=== PATIENT | male | born 1945 | race Caucasian/White ===

== ENCOUNTER 2018-10-07 09:26 | Emergency (ER) | payer OTHER ==
[~2018-10-07] VITALS: Ht 172.7 cm; Wt 63.0 kg
[2018-10-07 09:29] VITALS: Ht 172.7 cm; Wt 63.0 kg
[2018-10-07] MEDS ORDERED: HYDR-3980 PO (11:04)
[2018-10-07] MEDS ORDERED: LEVO750T25 PO (11:04)
--- NOTE | 2018-10-07 11:07 | ERD ---
ER Documentation Chief Complaint Chief Complaint Complains of right foot infection and pain x 1 week Hx of Diabetes HPI This is a 73-year-old male who was sent by his primary care doctor because he has a small callus on the plantar surface of his right foot that hurts but there is no erythema or signs of infection ROS All systems reviewed and are negative except as per history of present illness. Medications Home Meds Active Scripts Hydrocodone/Acetaminophen ([place] 10-325 Tablet) 1 Each Tablet, 1 TAB PO Q6H PRN for PAIN, #7 TAB Prov:LECARMELITAOSTHANHSTBERNADETTES A. DO 10/07/18 Levofloxacin* (Levaquin*) 750 Mg Tablet, 750 MG PO DAILY for 10 Days, TAB Prov:LEKKOS,APOSTOLOS A. DO 10/07/18 Allergies Allergies: Coded Allergies: No Known Allergy (Unverified , 02/16/16) PMhx/Soc History of Surgery: Yes (RIGHT LEG SX) Anesthesia Reaction: No Hx Neurological Disorder: No Hx Respiratory Disorders: No Hx Cardiac Disorders: Yes (HTN, HIGH CHOLESTEROL) Hx Psychiatric Problems: No Hx Miscellaneous Medical Probl: Yes (LEUKEMIA) Hx Alcohol Use: No Hx Substance Use: No Hx Tobacco Use: No Smoking Status: Never smoker FmHx Family History: No coronary disease Physical Exam Vitals Vital Signs Date Temp Pulse Resp B/P (MAP) Pulse Ox O2 O2 Flow FiO2 Time Delivery Rate 10/07/18 98.6 99 20 137/62 100 09:29 (87) Physical Exam Const: No acute distress Head: Atraumatic Eyes: Normal Conjunctiva ENT: Normal External Ears, Nose and Mouth. Neck: Full range of motion. No meningismus. Resp: Clear to auscultation bilaterally Cardio: Regular rate and rhythm, no murmurs Abd: Soft, non tender, non distended. Normal bowel sounds Skin: No petechiae or rashes Back: No midline or flank tenderness Ext: No cyanosis, or edema, the plantar surface of the right foot at the metatarsal head #5 has a 4 mm diameter callus to the skin there is no fat exposed or erythema Neur: Awake and alert Psych: Normal Mood and Affect Procedures/MDM We will cover him with Levaquin and pain medicine gave him warning signs Departure Diagnosis: Primary Impression: Foot ulcer Laterality: right Non-pressure ulcer stage: limited to breakdown of skin Qualified Codes: L97.511 - Non-pressure chronic ulcer of other part of right foot limited to breakdown of skin Condition: Stable Patient Instructions: Diabetic Foot Ulcers NICOLE FLANNERY DO Oct 07, 2018 11:07
[2018-10-07 11:10] VITALS: BP 131/65; PULSE 78; RESP 18
== END 2018-10-07 11:10 | disposition home or self-care (01) ==
LOC: E/R 09:26
DX: E11.621 Type 2 diabetes mellitus with foot ulcer (principal); L97.511 Non-pressure chronic ulcer of other part of right foot limited to breakdown of skin; I10 Essential (primary) hypertension
CPT/HCPCS: 99283

== ENCOUNTER 2019-07-08 17:17 | Inpatient (IN) | payer OTHER ==
[~2019-07-08] VITALS: Ht 162.6 cm; Wt 62.0 kg
[~2019-07-08 17:17] MED LIST: ASPI-817 PO; BENA40TA56 PO; CEFT1VIA13 IV; CLOP75TA27 PO; DOCU-144 PO; GABA100C14 PO; GEMF600T8 PO; HYDR-3980 PO; INSU100V3 IJ; LACTINEX PO; OMEP20CA17 PO; SODI473S5 TP; VANC750F2 IV; Vancomycin Iv Per Pharmacy XX; ZINC220C5 PO
[2019-07-08] MEDS ORDERED: ONDANSETRON 4 MG INJ IV STA (19:31)
[2019-07-08] MEDS ORDERED: HYDROmorphONE 1 MG/ML SYG IV STA (19:31)
[2019-07-08] MEDS ORDERED: ONDANSETRON 4 MG INJ IV PRN (20:00)
[2019-07-08] MEDS ORDERED: ACETAMINOPHEN 325 MG TAB PO PRN (20:00)
[2019-07-08] MEDS ORDERED: VANCOMYCIN 1 GM (PMX) 250 ML IVPB ONE (21:00)
[2019-07-08 22:30] VITALS: BP 158/70; PULSE 89; RESP 16
[2019-07-08 23:00] VITALS: Ht 162.6 cm; Wt 62.0 kg
[2019-07-09] MEDS ORDERED: HYDROCODONE/APAP (10/325) TAB PO PRN
[2019-07-09] MEDS ORDERED: HYDROCODONE/APAP (5/325) TAB PO PRN
[2019-07-09] MEDS ORDERED: VANCOMYCIN IV PER PHARMACY XX SCH
[2019-07-09] MEDS ORDERED: NACL 0.9% 3 ML SYG IV SCH
[2019-07-09] MEDS ORDERED: ONDANSETRON 4 MG INJ IV PRN
[2019-07-09] MEDS ORDERED: ALBUTEROL/IPRATROPIUM (NEB) 3 ML AMP HHN PRN
[2019-07-09] MEDS: CEFEPIME 1GM/50 ML (PMX) 50 ML IVPB SCH ×3 (00:35→20:32)
[2019-07-09 02:16] VITALS: BP 125/59; PULSE 110; RESP 20
[2019-07-09] MEDS: PANTOPRAZOLE (EC) 40 MG TAB PO SCH (06:22)
[2019-07-09] MEDS: ACCU-CHEK XX SCH ×4 (07:00→20:34)
[2019-07-09] MEDS ORDERED: HYDROmorphONE 1 MG/ML SYG IV ONE (07:30)
[2019-07-09 07:34] VITALS: BP 134/63; PULSE 89; RESP 17
[2019-07-09] MEDS: ZINC SULFATE 220 MG CAP PO SCH (08:45)
[2019-07-09] MEDS: HEPARIN 5,000 UNIT/1 ML VIAL SC SCH ×2 (08:46→20:39)
[2019-07-09] MEDS: DOCUSATE SODIUM 100 MG CAP PO SCH ×2 (08:47→20:33)
[2019-07-09] MEDS: CLOPIDOGREL 75 MG TAB PO SCH (08:47)
[2019-07-09] MEDS: ASPIRIN (EC) 81 MG TAB PO SCH (08:47)
[2019-07-09] MEDS: BENAZEPRIL 40 MG TAB PO SCH (08:47)
[2019-07-09] MEDS: GEMFIBROZIL 600 MG TAB PO SCH ×2 (08:48→20:33)
[2019-07-09] MEDS: GABAPENTIN 100 MG CAP PO SCH ×3 (08:48→20:33)
[2019-07-09] MEDS: VANCOMYCIN 750 MG (PMX) 250 ML IVPB SCH ×2 (11:20→23:02)
[2019-07-09] MEDS: HYDROCODONE/APAP (5/325) TAB PO PRN ×2 (12:38→23:45)
[2019-07-09] MEDS ORDERED: MUPIROCIN 2% 22 GM OINT TOP ONE (13:30)
[2019-07-09] MEDS ORDERED: GLUCOSE GEL 15 GRAM TUBE PO PRN ×2 (14:30)
[2019-07-09] MEDS ORDERED: DEXTROSE 50% 50 ML SYRINGE IV PRN ×2 (14:30)
[2019-07-09] MEDS ORDERED: GLUCOSE GEL 15 GRAM TUBE BUCCAL PRN (14:30)
[2019-07-09] MEDS ORDERED: GLUCAGON 1 MG INJ IM PRN (14:30)
[2019-07-09 14:50] VITALS: BP 142/63; PULSE 77; RESP 18
[2019-07-09] MEDS: INSULIN ASPART [NOVOLOG] 3 ML PEN SC SCH ×2 (18:00→20:34)
[2019-07-09 19:17] VITALS: BP 139/63; PULSE 88; RESP 16
[2019-07-09] MEDS: MUPIROCIN 2% 22 GM OINT TOP SCH (20:34)
[2019-07-10] VITALS (16 sets, daily range): BP systolic 99–149; BP diastolic 46–72; PULSE 66–96; RESP 10–18
[2019-07-10] MEDS: KETOROLAC 30 MG INJ IV PRN ×2 (01:21→22:45)
[2019-07-10] MEDS: INSULIN ASPART [NOVOLOG] 3 ML PEN SC SCH ×5 (04:47→20:54)
[2019-07-10] MEDS: PANTOPRAZOLE (EC) 40 MG TAB PO SCH (05:40)
[2019-07-10] MEDS: ACCU-CHEK XX SCH ×4 (06:58→20:55)
[2019-07-10] MEDS ORDERED: DEXTROSE 5%-0.45% NACL 1,000 ML IV SCH (07:00)
[2019-07-10] MEDS ORDERED: VANCOMYCIN 750 MG (PMX) 250 ML IVPB SCH (08:00)
[2019-07-10] MEDS: ASPIRIN (EC) 81 MG TAB PO SCH (08:12)
[2019-07-10] MEDS: DOCUSATE SODIUM 100 MG CAP PO SCH ×2 (08:12→20:51)
[2019-07-10] MEDS: CEFEPIME 1GM/50 ML (PMX) 50 ML IVPB SCH ×2 (08:12→20:44)
[2019-07-10] MEDS: ZINC SULFATE 220 MG CAP PO SCH (08:13)
[2019-07-10] MEDS: BENAZEPRIL 40 MG TAB PO SCH (08:13)
[2019-07-10] MEDS: CLOPIDOGREL 75 MG TAB PO SCH (08:13)
[2019-07-10] MEDS: HEPARIN 5,000 UNIT/1 ML VIAL SC SCH ×2 (08:13→20:53)
[2019-07-10] MEDS: GABAPENTIN 100 MG CAP PO SCH ×3 (08:13→20:51)
[2019-07-10] MEDS: GEMFIBROZIL 600 MG TAB PO SCH ×2 (08:13→20:51)
[2019-07-10] MEDS: MUPIROCIN 2% 22 GM OINT TOP SCH ×2 (08:14→20:55)
[2019-07-10] MEDS: VANCOMYCIN 750 MG (PMX) 250 ML IVPB SCH ×2 (11:09→23:27)
[2019-07-10] MEDS ORDERED: MIDAZOLAM 1 MG/ML 2 ML INJ ONE (14:11)
[2019-07-10] MEDS ORDERED: PROPOFOL 20 ML ONE (14:11)
[2019-07-10] MEDS ORDERED: ROPIVACAINE 0.5 % 30 ML VIAL ONE (14:12)
[2019-07-10] MEDS ORDERED: METOCLOPRAMIDE 10 MG INJ ONE (14:14)
[2019-07-10] MEDS ORDERED: FENTAnyl 50 MCG/ML VIAL ONE ×2 (14:33→15:16)
[2019-07-10] MEDS ORDERED: LIDOCAINE 1% (MPF) 30 ML INJ ONE ×2 (14:53→15:39)
[2019-07-10] MEDS ORDERED: EPHEDrine 25 MG/5 ML SYG ONE (14:54)
[2019-07-10] MEDS ORDERED: LABETALOL HCL 20MG INJ IV PRN (15:00)
[2019-07-10] MEDS ORDERED: ONDANSETRON 4 MG INJ IV PRN (15:00)
[2019-07-10] MEDS ORDERED: FENTAnyl 50 MCG/ML VIAL IV PRN ×3 (15:00)
[2019-07-10] MEDS ORDERED: HYDROmorphONE 1 MG/5 ML IV SYRINGE IV PRN ×3 (15:00)
[2019-07-10] MEDS ORDERED: hydrALAzine 20 MG INJ IV PRN (15:00)
[2019-07-10] MEDS ORDERED: MEPERIDINE 25 MG INJ IV PRN (15:00)
[2019-07-10] MEDS ORDERED: DIPHENHYDRAMINE 50 MG INJ IV PRN (15:00)
[2019-07-10] MEDS: NITROGLYCERIN 2% 1 GM OINT PKT TD SCH ×2 (15:38→15:44)
[2019-07-11 02:10] VITALS: BP 114/58; PULSE 99; RESP 18
[2019-07-11] MEDS: ACETAMINOPHEN 325 MG TAB PO PRN ×2 (02:16→23:12)
[2019-07-11] MEDS: HYDROCODONE/APAP (5/325) TAB PO PRN ×3 (05:23→20:36)
[2019-07-11] MEDS: PANTOPRAZOLE (EC) 40 MG TAB PO SCH (05:23)
[2019-07-11] MEDS: KETOROLAC 30 MG INJ IV PRN ×2 (05:23→12:23)
[2019-07-11 07:13] VITALS: BP 132/60; PULSE 88; RESP 18
[2019-07-11] MEDS: INSULIN ASPART [NOVOLOG] 3 ML PEN SC SCH ×4 (08:17→20:58)
[2019-07-11] MEDS: ACCU-CHEK XX SCH ×4 (08:17→21:00)
[2019-07-11] MEDS: ZINC SULFATE 220 MG CAP PO SCH (08:18)
[2019-07-11] MEDS: ASPIRIN (EC) 81 MG TAB PO SCH (08:18)
[2019-07-11] MEDS: BENAZEPRIL 40 MG TAB PO SCH (08:19)
[2019-07-11] MEDS: DOCUSATE SODIUM 100 MG CAP PO SCH ×2 (08:19→20:57)
[2019-07-11] MEDS: GABAPENTIN 100 MG CAP PO SCH ×3 (08:19→20:58)
[2019-07-11] MEDS: CLOPIDOGREL 75 MG TAB PO SCH (08:19)
[2019-07-11] MEDS: CEFEPIME 1GM/50 ML (PMX) 50 ML IVPB SCH ×2 (08:19→20:54)
[2019-07-11] MEDS: HEPARIN 5,000 UNIT/1 ML VIAL SC SCH ×2 (08:35→21:01)
[2019-07-11] MEDS: MUPIROCIN 2% 22 GM OINT TOP SCH ×2 (08:37→21:00)
[2019-07-11] MEDS: GEMFIBROZIL 600 MG TAB PO SCH ×2 (08:41→20:58)
[2019-07-11] MEDS: VANCOMYCIN 750 MG (PMX) 250 ML IVPB SCH ×2 (11:56→23:12)
[2019-07-11 13:48] VITALS: BP 178/73; PULSE 106; RESP 22
[2019-07-11 19:26] VITALS: BP 159/88; PULSE 102; RESP 18
[2019-07-11 20:14] VITALS: BP 185/74; PULSE 106; PULSE 98; RESP 18
[2019-07-11] MEDS ORDERED: AMLODIPINE 10 MG TAB PO ONE (21:00)
[2019-07-12 01:50] VITALS: BP 133/61; PULSE 112; PULSE 90; RESP 20
[2019-07-12] MEDS: HYDROCODONE/APAP (5/325) TAB PO PRN ×4 (02:53→21:16)
[2019-07-12] MEDS: PANTOPRAZOLE (EC) 40 MG TAB PO SCH (06:26)
[2019-07-12] MEDS: ACCU-CHEK XX SCH ×4 (07:00→21:22)
[2019-07-12] MEDS: INSULIN ASPART [NOVOLOG] 3 ML PEN SC SCH ×4 (07:00→21:00)
[2019-07-12 08:10] VITALS: BP 106/59; PULSE 94; RESP 18
[2019-07-12] MEDS: CEFEPIME 1GM/50 ML (PMX) 50 ML IVPB SCH ×2 (08:46→21:18)
[2019-07-12] MEDS: DOCUSATE SODIUM 100 MG CAP PO SCH ×2 (08:47→21:00)
[2019-07-12] MEDS: BENAZEPRIL 40 MG TAB PO SCH (08:49)
[2019-07-12] MEDS: CLOPIDOGREL 75 MG TAB PO SCH (08:49)
[2019-07-12] MEDS: GABAPENTIN 100 MG CAP PO SCH ×3 (08:49→21:17)
[2019-07-12] MEDS: GEMFIBROZIL 600 MG TAB PO SCH ×2 (08:49→21:17)
[2019-07-12] MEDS: ZINC SULFATE 220 MG CAP PO SCH (08:50)
[2019-07-12] MEDS: ASPIRIN (EC) 81 MG TAB PO SCH (08:50)
[2019-07-12] MEDS: MUPIROCIN 2% 22 GM OINT TOP SCH ×2 (08:51→21:00)
[2019-07-12] MEDS: HEPARIN 5,000 UNIT/1 ML VIAL SC SCH ×2 (08:53→21:17)
[2019-07-12] MEDS: VANCOMYCIN 750 MG (PMX) 250 ML IVPB SCH ×2 (10:36→23:19)
[2019-07-12 13:49] VITALS: BP 120/56; PULSE 92; RESP 18
[2019-07-12 19:51] VITALS: BP 140/67; PULSE 90; RESP 20
[2019-07-12] MEDS: ACETAMINOPHEN 325 MG TAB PO PRN (22:51)
[2019-07-13] MEDS: HYDROCODONE/APAP (5/325) TAB PO PRN ×4 (02:27→23:19)
[2019-07-13] MEDS: PANTOPRAZOLE (EC) 40 MG TAB PO SCH (05:43)
[2019-07-13] MEDS: ACCU-CHEK XX SCH ×4 (07:00→21:00)
[2019-07-13] MEDS: INSULIN ASPART [NOVOLOG] 3 ML PEN SC SCH ×4 (07:00→21:00)
[2019-07-13 08:15] VITALS: BP 109/56; PULSE 91; RESP 18
[2019-07-13] MEDS: GABAPENTIN 100 MG CAP PO SCH ×3 (08:52→21:19)
[2019-07-13] MEDS: ZINC SULFATE 220 MG CAP PO SCH (08:52)
[2019-07-13] MEDS: CLOPIDOGREL 75 MG TAB PO SCH (08:52)
[2019-07-13] MEDS: CEFEPIME 1GM/50 ML (PMX) 50 ML IVPB SCH (08:52)
[2019-07-13] MEDS: GEMFIBROZIL 600 MG TAB PO SCH ×2 (08:52→21:19)
[2019-07-13] MEDS: ASPIRIN (EC) 81 MG TAB PO SCH (08:53)
[2019-07-13] MEDS: DOCUSATE SODIUM 100 MG CAP PO SCH ×2 (08:53→21:00)
[2019-07-13] MEDS: BENAZEPRIL 40 MG TAB PO SCH (08:55)
[2019-07-13] MEDS: MUPIROCIN 2% 22 GM OINT TOP SCH ×2 (09:00→21:00)
[2019-07-13] MEDS: HEPARIN 5,000 UNIT/1 ML VIAL SC SCH ×2 (09:18→21:29)
[2019-07-13] MEDS ORDERED: GENTAMICIN IV PER PHARMACY XX SCH (13:30)
[2019-07-13 13:48] VITALS: BP 113/59; PULSE 105; RESP 18
[2019-07-13] MEDS: ACETAMINOPHEN 325 MG TAB PO PRN ×2 (14:10→21:24)
[2019-07-13] MEDS ORDERED: GENTAMICIN 300 MG in SOD CHLORIDE 0.9% 100 ML IVPB SCH (16:00)
[2019-07-13 19:37] VITALS: BP 104/53; PULSE 91; RESP 18
[2019-07-13] MEDS: MEROPENEM 1 GM/50ML(PMX) 50 ML IVPB SCH (21:19)
[2019-07-14 01:30] VITALS: BP 117/57; PULSE 96; RESP 18
[2019-07-14] MEDS: HYDROCODONE/APAP (5/325) TAB PO PRN ×3 (05:46→18:40)
[2019-07-14] MEDS: PANTOPRAZOLE (EC) 40 MG TAB PO SCH (05:46)
[2019-07-14] MEDS: ACCU-CHEK XX SCH ×3 (07:00→17:25)
[2019-07-14] MEDS: INSULIN ASPART [NOVOLOG] 3 ML PEN SC SCH ×3 (07:00→17:25)
[2019-07-14 07:20] VITALS: BP 108/55; PULSE 82; RESP 20
[2019-07-14] MEDS: MUPIROCIN 2% 22 GM OINT TOP SCH (08:16)
[2019-07-14] MEDS: MEROPENEM 1 GM/50ML(PMX) 50 ML IVPB SCH (08:16)
[2019-07-14] MEDS: ZINC SULFATE 220 MG CAP PO SCH (08:17)
[2019-07-14] MEDS: CLOPIDOGREL 75 MG TAB PO SCH (08:17)
[2019-07-14] MEDS: ASPIRIN (EC) 81 MG TAB PO SCH (08:17)
[2019-07-14] MEDS: GEMFIBROZIL 600 MG TAB PO SCH (08:17)
[2019-07-14] MEDS: BENAZEPRIL 40 MG TAB PO SCH (08:17)
[2019-07-14] MEDS: GABAPENTIN 100 MG CAP PO SCH ×2 (08:17→12:06)
[2019-07-14] MEDS: DOCUSATE SODIUM 100 MG CAP PO SCH (08:18)
[2019-07-14] MEDS: HEPARIN 5,000 UNIT/1 ML VIAL SC SCH (08:20)
[2019-07-14] MEDS: ACETAMINOPHEN 325 MG TAB PO PRN (10:39)
[2019-07-14] MEDS ORDERED: AMIKACIN IV PER PHARMACY XX SCH (11:00)
[2019-07-14 13:47] VITALS: BP 126/58; PULSE 83; RESP 20
[2019-07-14] MEDS ORDERED: SOD CHLORIDE 0.9% IVPB SCH (15:00)
[2019-07-14] MEDS ORDERED: AMIKACIN IVPB SCH (15:00)
[2019-07-14] MEDS ORDERED: SCOPOLAMINE 1.5 MG PATCH TRANSDERM SCH (17:00)
[2019-07-14 19:51] VITALS: BP 111/55; PULSE 87; RESP 18
== END 2019-07-14 20:20 | DRG 240 ==
LOC: E/R 17:17 → 2NE 19:45
PROVIDERS: ADMIT Internal Medicine; ATTEND Family Medicine
PROC: 0QBN0ZX Excision of Right Metatarsal, Open Approach, Diagnostic (ICD-10-PCS; 2019-07-10)
PROC: 0HXLXZZ Transfer Left Lower Leg Skin, External Approach (ICD-10-PCS; 2019-07-10)
PROC: 0Y6N0ZC Detachment at Left Foot, Partial 3rd Ray, Open Approach (ICD-10-PCS; principal; 2019-07-10 14:30)
DX: E11.52 Type 2 diabetes mellitus with diabetic peripheral angiopathy with gangrene (principal); M86.8X7 Other osteomyelitis, ankle and foot; L03.116 Cellulitis of left lower limb; C95.90 Leukemia, unspecified not having achieved remission; E11.621 Type 2 diabetes mellitus with foot ulcer; Z79.4 Long term (current) use of insulin; E11.69 Type 2 diabetes mellitus with other specified complication; L97.529 Non-pressure chronic ulcer of other part of left foot with unspecified severity; Z89.422 Acquired absence of other left toe(s); I10 Essential (primary) hypertension; E78.5 Hyperlipidemia, unspecified; Z79.82 Long term (current) use of aspirin; Z79.02 Long term (current) use of antithrombotics/antiplatelets; E11.42 Type 2 diabetes mellitus with diabetic polyneuropathy; L97.519 Non-pressure chronic ulcer of other part of right foot with unspecified severity; Z87.891 Personal history of nicotine dependence
CPT/HCPCS: 36415; 73630; 80048; 80053; 80170; 80202; 82962; 83735; 84100; 85025; 85610; 85730; 87070; 87075; 87102; 87116; 88304; 88305; 88311; 96374; 96375; J0278; J0692; J1170; J1580; J1644; J1815; J1885; J2185; J2250; J2405; J2765; J2795; J3010; J3370; J7042; J7050